=== PATIENT | female | born 1985 | race Caucasian/White ===

== ENCOUNTER 2017-10-13 19:18 | Emergency (ER) | payer BC ==
[~2017-10-13] VITALS: Ht 160 cm; Wt 62.7 kg
[~2017-10-13 19:18] MED LIST: MOTRIN 800800 MG/TAB PO; PERCOCET 325 MG1 TA2 PO; PRENATAL1 TA7 PO; TYLENOL PM EXTR1 TA1 PO
[2017-10-13 20:15] LABS: BASO % 0.2 % (0.0-2.0); EOS % 0.1 % (0-4.0); GRAN # 14.9 (1.4-6.5); LYMPH # 0.9 (1.2-3.4); LYMPH % 5.4 % (20.0-51.0); MEAN CELL VOLUME 81 fl (80.0-100.0); MEAN CORPUSCULAR HGB CONC 34 g/dl (33.0-37.0); MEAN PLATELET VOLUME 9.3 fl (7.4-10.4); MONO % 5.9 % (1.7-9.3); PLATELET COUNT 246 K/mm3 (130-400); RED BLOOD COUNT 4.13 M/mm3 (4.10-5.30); REDCELL DISTRIBUTION WIDTH-CV 12.8 % (11.5-14.5)
[2017-10-13 20:16] LABS: HEMATOCRIT 33.3 % (37.0-47.0); HEMOGLOBIN 11.4 g/dl (12.5-16.0); MEAN CORPUSCULAR HEMOGLOBIN 28 pg (27.0-31.0)
[2017-10-13 20:23] LABS: ALBUMIN 4.2 gm/dL (3.5-5.0); BILIRUBIN,TOTAL 0.7 mg/dL (0.0-1.0); CALCIUM 9.7 mg/dL (8.4-10.2); CREATININE, serum 0.72 mg/dL (0.52-1.25); POTASSIUM 3.6 mmol/L (3.4-5.0); TOTAL PROTEIN 8.2 gm/dL (6.4-8.2)
[2017-10-13 20:30] LABS: COLLECTION METHOD CLEAN CATCH
[2017-10-13 20:36] LABS: PH 6 (5-8); SQUAMOUS EPITHELIAL 0-2 /hpf; URINE APPEARANCE Clear; URINE BACTERIA Rare /hpf; URINE BILIRUBIN Negative (NEGATIVE); URINE BLOOD 2+ (NEGATIVE); URINE COLOR Straw; URINE GLUCOSE Negative (NEGATIVE); URINE KETONE Negative (NEGATIVE); URINE LEUKOCYTE ESTERASE 1+ (NEGATIVE); URINE NITRATE Negative (NEGATIVE); URINE PROTEIN(semi-quant) Negative (NEGATIVE); URINE RBC 0-2 /hpf; URINE UROBILINOGEN Negative (NEGATIVE)
[2017-10-13] MEDS ORDERED: ZOFRAN 4MG T4 MG/TAB PO (21:36)
[2017-10-13] MEDS ORDERED: CEPHALEXIN500 M1 PO (21:36)
[2017-10-13 22:16] VITALS: BP 115/70; PULSE 80; TEMP 99.2
== END 2017-10-13 22:39 | disposition home or self-care (01) ==
LOC: COL.ER 19:18
PROVIDERS: Emergency Medicine
DX: N12 Tubulo-interstitial nephritis, not specified as acute or chronic (principal); Z98.890 Other specified postprocedural states
CPT/HCPCS: J0696; J1885; J2405; J7030; Q9967

== ENCOUNTER 2018-08-05 00:01 | Outpatient (CLI) | payer BC ==
[~2018-08-05] VITALS: Ht 160 cm; Wt 70.9 kg
[~2018-08-05 00:01] MED LIST changes: +CEPHALEXIN500 M1 PO; +ZOFRAN 4MG T4 MG/TAB PO
[2018-08-05 00:20] VITALS: BP 128/74; PULSE 74; TEMP 97.8
--- NOTE | 2018-08-05 00:20 | NUR ---
0020 G3L2 39.5 WEEK GEST TO LR3 WITH C/O CONTINUOUS PAIN ACROSS THE TOP OF UTERUS THAT HAS BEEN LASTING FOR AWHILE. ALSO FEELS LIKE SHE MIGHT BE HAVING CONTRACTIONS ABOUT EVERY 5-10 MINUTES. ONLY FEELS TOP OF UTERUS TIGHTENING EVERY ONCE IN A WHILE BUT NO OTHER PAIN EXCEPT FOR CONTANT PAIN ON TOP OF UTERUS. EFM ON. SVE WITH 1CM AND VERY POSTERIOR CERVIX. ADM ASSESSMENT DONE. AFTER ASSESSMENT DONE STATES CONSTANT PAIN ON TOP OF UTERUS IS BETTER.
[2018-08-05 00:24] VITALS: BP 128/74; PULSE 74; TEMP 97.8
[2018-08-05] MEDS ORDERED: PRENATAL MVI PO (00:24)
--- NOTE | 2018-08-05 01:20 | NUR ---
0120 SVE WITH NO CERVICAL CHANGE. STATES UPPER ABD PAIN IS GONE AND CONTRACTIONS ARE MILD. 0130 DR ARITA NOTIFIED WITH ORDER TO D/C TO HOME 0145 DISMISS TO HOME WITH INSTRUCTIONS.
== END 2018-08-05 01:45 | disposition home or self-care (01) ==
LOC: LDRO 00:01
DX: O62.9 Abnormality of forces of labor, unspecified (principal); O26.893 Other specified pregnancy related conditions, third trimester; R10.10 Upper abdominal pain, unspecified; Z3A.39 39 weeks gestation of pregnancy

== ENCOUNTER 2018-08-09 13:34 | Inpatient (IN) | payer BC ==
[2018-08-09] VITALS (23 sets, daily range): BP systolic 92–140; BP diastolic 41–97; PULSE 55–96; TEMP 97.6–98.7
[~2018-08-09] VITALS: Ht 160 cm; Wt 71.8 kg
[~2018-08-09 13:34] MED LIST changes: +PRENATAL MVI PO
--- NOTE | 2018-08-09 14:06 | NUR ---
1340 PATIENT HERE FROM OFFICE FOR DECELERATIONS AT OFFICE IN NST. ASSESSMENT COMPLETED. SVE /-2. EFM ON FHT 180 WITH REGULAR VARIABLES NOTED. DR RAMIREZ UPDATED AND ORDERS GIVEN TO ADMIT PATIENT AND START IV . 1350 IV STARTED IN LEFT WRIST AND LR HUNG AT THIS TIME FOR [address] RAMIREZ UPDATED AND TALSK WITH PATIENT
[2018-08-09 14:21] LABS: BASO # 0.1 (0.0-0.2); BASO % 0.4 % (0.0-2.0); EOS # 0.1 (0.0-0.7); EOS % 0.6 % (0-4.0); GRAN % 72.7 % (42.2-75.2); HEMOGLOBIN 10.4 g/dl (12.5-16.0); LYMPH # 2.6 (1.2-3.4); LYMPH % 19.2 % (20.0-51.0); MEAN CELL VOLUME 85 fl (80.0-100.0); MEAN CORPUSCULAR HEMOGLOBIN 27 pg (27.0-31.0); MEAN CORPUSCULAR HGB CONC 32 g/dl (33.0-37.0); MEAN PLATELET VOLUME 9.6 fl (7.4-10.4); MONO # 0.7 (0.1-0.6); MONO % 5.3 % (1.7-9.3); PLATELET COUNT 275 K/mm3 (130-400); RED BLOOD COUNT 3.82 M/mm3 (4.10-5.30); REDCELL DISTRIBUTION WIDTH-CV 13.7 % (11.5-14.5)
[2018-08-09 14:27] LABS: HEMATOCRIT 32.6 % (37.0-47.0)
--- NOTE | 2018-08-09 14:58 | NUR ---
0221 DR RAMIREZ AT BEDSIDE TO TALK TO PATIENT AND ABOUT OPTIONS. VERBAL UNDERSTANDING NOTED. Elyssa LAMBERT CRNA AT BEDSIDE TO DISCUSS EPIDURAL WITH PATIENT AND .
--- NOTE | 2018-08-09 15:00 | NUR ---
1440 PATIENT SITS UP FOR EPIDURAL PLACEMENT. TOLERATE WELL. Elyssa LAMBERT OVENS SUPERVISOR AT BEDSIDE FOR EPIDURAL PLACEMENT. PATIENT TOLERATES WELL. SEE OVENS SUPERVISOR NOTES FOR QUESTIONS.
--- NOTE | 2018-08-09 15:18 | NUR ---
1515 DR RAMIREZ AT BEDSIDE. SVE /-2 AROM FOR CLEAR FLUID NOTED MODERATE AMOUNT NOTED. NO ODOR NOTED. SCALP ELECTRODE PLACED BY LARGE AMOUNT OF CLEAR FLUID.
--- NOTE | 2018-08-09 16:13 | NUR ---
1545 10 L O2/MASK, MARIANO PLACED. DR RAMIREZ TALKS WITH PATIENT ABOUT THE NEED FOR C SECTION..VERBAL UNDERSTNDING NOTED BY PATIENT AND . EFM OFF SCALP ELECTRODE OFF PATIENT TO OR NOW
--- NOTE | 2018-08-09 17:39 | NUR ---
1715 PATIENT NAUSEATED. Elyssa LAMBERT CRNA GIVES PHENERGAN 12.5 IV NOW
--- NOTE | 2018-08-09 19:23 | NUR ---
Pt reports continued nausea, holding graduated cylinder under chin. Phenergan 12.5mg slow iv push. Juice and crackers provided. attentive at bedside, holding baby
[2018-08-10 00:01] LABS: COLLECTION METHOD CATHETER
[2018-08-10 00:19] LABS: MUCOUS Present /lpf; PH 6 (5-8); SQUAMOUS EPITHELIAL 0-2 /hpf; URINE APPEARANCE Clear; URINE BACTERIA Rare /hpf; URINE BILIRUBIN Negative (NEGATIVE); URINE BLOOD 2+ (NEGATIVE); URINE CALCIUM OXALATE CRYSTAL Present /hpf; URINE COLOR Amber; URINE GLUCOSE 2+ (NEGATIVE); URINE KETONE 1+ (NEGATIVE); URINE LEUKOCYTE ESTERASE Negative (NEGATIVE); URINE NITRATE Negative (NEGATIVE); URINE PROTEIN(semi-quant) Negative (NEGATIVE); URINE UROBILINOGEN Negative (NEGATIVE)
[2018-08-10 00:45] VITALS: BP 112/64; PULSE 70; TEMP 98.6
[2018-08-10 07:30] VITALS: BP 108/57; PULSE 58
[2018-08-10] MEDS ORDERED: IBU800 M1 PO (08:52)
[2018-08-10] MEDS ORDERED: PERCOCET 325 MG1 TA2 PO (08:52)
--- NOTE | 2018-08-10 10:06 | NUR ---
Initial visit; Mom thanked Pharmaceutical Development Technician for offering congratulations and God's blessings for the of her daughter. Pharmaceutical Development Technician thanked her for choosing [facility].
[2018-08-10 16:00] VITALS: BP 132/54; PULSE 88
[2018-08-10 21:40] VITALS: BP 107/62; PULSE 58; TEMP 98.1
[2018-08-11 08:10] VITALS: BP 105/68; PULSE 76; TEMP 98.1
[2018-08-11 08:11] VITALS: BP 112/68; PULSE 68; TEMP 98.1
== END 2018-08-11 14:07 | disposition home or self-care (01) | DRG 788 ==
LOC: LDR 13:34 → OB 17:08
PROVIDERS: ADMIT Student in an Organized Health Care Education/Training Program
PROC: 10D00Z1 Extraction of Products of Conception, Low, Open Approach (ICD-10-PCS; principal; 2018-08-09)
DX: O76 Abnormality in fetal heart rate and rhythm complicating labor and delivery (principal); Z3A.40 40 weeks gestation of pregnancy; Z37.0 Single live birth; O69.81X0 Labor and delivery complicated by cord around neck, without compression, not applicable or unspecified
CPT/HCPCS: J0690; J1885; J2270; J2370; J2405; J2550; J2590; J2795; J3010; J7120